=== PATIENT | male | born 1975 ===

== ENCOUNTER 2017-04-20 09:46 | Emergency (ER) | payer BC, OTHER ==
[2017-04-20 10:08] VITALS: BP 131/81
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
== END 2017-04-20 11:05 | disposition home or self-care (01) ==
LOC: UCEAST 09:46
DX: S16.1XXA Strain of muscle, fascia and tendon at neck level, initial encounter (principal); M62.838 Other muscle spasm; V09.20XA Pedestrian injured in traffic accident involving unspecified motor vehicles, initial encounter; Y93.55 Activity, bike riding; Y92.410 Unspecified street and highway as the place of occurrence of the external cause
CPT/HCPCS: 99211; G0463

== ENCOUNTER 2017-09-24 13:43 | Emergency (ER) | payer BC, OTHER ==
[2017-09-24] MEDS ORDERED: Oxymetazoline 0.05% NASAL SPR* 15 ML BTL BOTH NARES ONE (14:04)
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
[2017-09-24] MEDS ORDERED: Phenylephrine 1% NASAL* 15 ML BOT RIGHT NARE ONE (14:39)
--- NOTE | 2017-09-24 14:51 | RAD ---
INDICATION: Nasal bone trauma. TECHNIQUE: 3 views of the nasal bones were obtained including lateral and Whitfield views. FINDINGS: No fracture is seen. There is mild deviation of the nasal septum toward the left side. IMPRESSION: NO EVIDENCE OF FRACTURE.
--- NOTE | 2017-09-24 16:23 | RAD ---
Indication: Facial injury. CT of the nasal bones and face was obtained in the axial plane. Sagittal and coronal reconstructed images were obtained. The frontal sinuses are well aerated with no fracture. No fracture of the orbits is noted. Zygomatic arch demonstrates no fracture. Moderately comminuted fracture of the nasal arch is noted on the left and the right side with slight lateral displacement of the right NaSal arch. The septum is intact. The heart palate and pterygoid plates are unremarkable. Mandible demonstrates no fracture. Temporomandibular joints are grossly unremarkable. The visualized cervical spine is unremarkable. Scattered small normal-sized lymph nodes are noted bilaterally. IMPRESSION: Comminuted fracture of the nasal arch bilaterally although more prominent on the right than on the left with slight overriding of the fracture fragments.
[2017-09-24 16:31] VITALS: BP 108/69
== END 2017-09-24 16:40 | disposition home or self-care (01) ==
LOC: UCEAST 13:43
DX: S02.2XXA Fracture of nasal bones, initial encounter for closed fracture (principal); W50.0XXA Accidental hit or strike by another person, initial encounter; Y93.9 Activity, unspecified; Y92.9 Unspecified place or not applicable; R04.0 Epistaxis
CPT/HCPCS: 30901; 70160; 70486; 99212; A9270-GY; G0463